=== PATIENT | male | born 1965 ===

== ENCOUNTER 2022-09-24 09:51 | Outpatient (CLI) | payer OTHER ==
[2022-09-24] MEDS ORDERED: LIPIT PO (13:54)
[2022-09-24] MEDS ORDERED: TIROSINT50 MCG PO (13:54)
== END 2022-09-24 09:52 | disposition home or self-care (01) ==
LOC: LAB 09:51
PROVIDERS: ATTEND Surgery
DX: K64.2 Third degree hemorrhoids (principal); K62.89 Other specified diseases of anus and rectum; K62.5 Hemorrhage of anus and rectum; Z03.818 Encounter for observation for suspected exposure to other biological agents ruled out; Z20.822 Contact with and (suspected) exposure to COVID-19

== ENCOUNTER 2022-09-26 05:00 | Day surgery (SDC) | payer OTHER ==
[~2022-09-26] VITALS: Ht 172.7 cm; Wt 97.5 kg
[~2022-09-26 05:00] MED LIST: LIPIT PO; TIROSINT50 MCG PO
[2022-09-26] MEDS ORDERED: OXYC1TAB9 PO (09:50)
== END 2022-09-26 13:50 | disposition home or self-care (01) ==
LOC: CIR.AMB 05:00
PROVIDERS: ATTEND Surgery
DX: K64.2 Third degree hemorrhoids (principal); K62.89 Other specified diseases of anus and rectum; K62.5 Hemorrhage of anus and rectum; Z20.822 Contact with and (suspected) exposure to COVID-19

== ENCOUNTER 2022-10-02 21:26 | Inpatient (IN) | payer OTHER ==
[~2022-10-02] VITALS: Ht 172.7 cm; Wt 209.6 kg
[~2022-10-02 21:26] MED LIST changes: +OXYC1TAB9 PO
[2022-10-02] MEDS ORDERED: LIPITOR40 M1 (21:43)
--- NOTE | 2022-10-02 21:43 | NUR ---
SE RECIBE PACIENTE MASCULINO ALERTA Y ORIENTADO X 3 ESFERAS EN AMBULANCIA EN COMPANIA DE FAMILIAR. PTE INDICA QUE FUE OPERADO EL 09/26/[address]RODRIGUEZ JONES. REFIERE QUE DESDE HACE [place] PRESENTA DOLOR ABDOMINAL Y NAUSEAS.
--- NOTE | 2022-10-02 21:56 | NUR ---
EVALUA PTE. SE EDUCA SOBRE [place] MEDICO, REFIERE COMPRENDER. SE COLECTAN MUESTRAS DE LABORATORIO BAJO MEDIDAS ASEPTICAS. SE ADMINISTRAN MEDICAMENTOS TONIA ORDEN MEDICA. PENDIENTE RE-EVALUACION MEDICA.
--- NOTE | 2022-10-02 23:13 | NUR ---
SE RECIBE PTE MASCULINO DE 57 ANOS ALERTA Y ORIENTADO X3 QUIEN AL MOMENTO NO REFIERE DOLOR. PTE AL MOMENTO RECIBE INFUCION DE 0.9% NSS A 150 MLS HRA. PTE PEND A LECTUTRA DE CT SCAN Y ENTREGA DE FECAL. PTE AL MOMENTO BAJO OBSERBACION POR CAMBIO EN MICHAEL CONDICION.
--- NOTE | 2022-10-03 07:05 | NUR ---
MASCULINO ALERTA Y ORIENTADO X3. RECIBIENDO IV FLUID 0.9%NSS @ 150 MLS/HR CON VENOPUNCION PATENTE SUHAS DE EDEMA ERITEMA Y SIGNOS DE INFECCION. PENDIENTE A RESULTADOS DE LABORATORIO.
[2022-10-04] MEDS ORDERED: DERMOPLAST PAIN78 GM (11:39)
[2022-10-04] MEDS ORDERED: CLONAZEPAM0.5 MG (11:40)
[2022-10-04] MEDS ORDERED: ZOLPIDEM TARTRA10 MG (11:40)
[2022-10-04] MEDS ORDERED: FLUOXETINE HCL40 MG (11:40)
[2022-10-17] MEDS ORDERED: HYOSCYAMINE0.125 M1 SL (15:22)
== END 2022-10-17 19:11 | disposition home or self-care (01) | DRG 392 ==
LOC: ER 21:26 → SURG 10-03 18:04
PROVIDERS: ADMIT Surgery; ATTEND Surgery
PROC: BW21ZZZ Computerized Tomography (CT Scan) of Abdomen and Pelvis (ICD-10-PCS; principal; 2022-10-02)
PROC: 3E0336Z Introduction of Nutritional Substance into Peripheral Vein, Percutaneous Approach (ICD-10-PCS; 2022-10-04)
PROC: BW21YZZ Computerized Tomography (CT Scan) of Abdomen and Pelvis using Other Contrast (ICD-10-PCS; 2022-10-07)
PROC: BW21YZZ Computerized Tomography (CT Scan) of Abdomen and Pelvis using Other Contrast (ICD-10-PCS; 2022-10-12)
DX: K57.20 Diverticulitis of large intestine with perforation and abscess without bleeding (principal); R18.8 Other ascites; R10.32 Left lower quadrant pain; E03.9 Hypothyroidism, unspecified